=== PATIENT | female | born 1990 | race Caucasian/White ===

== ENCOUNTER 2016-12-31 18:05 | Emergency (ER) | payer SELFPAY ==
[~2016-12-31] VITALS: Ht 167.6 cm; Wt 52.2 kg
[~2016-12-31 18:05] MED LIST: AMOXICILLIN500 MG PO; TYLENOL325 MG PO; ZOFRAN ODT4 MG SL
[2016-12-31] MEDS ORDERED: CEPHALEXIN500 MG PO (19:14)
== END 2016-12-31 19:29 | disposition home or self-care (01) ==
LOC: ED 18:05
DX: K02.9 Dental caries, unspecified (principal); F31.9 Bipolar disorder, unspecified; F17.200 Nicotine dependence, unspecified, uncomplicated
CPT/HCPCS: 99283

== ENCOUNTER 2017-08-12 08:06 | Emergency (ER) | payer SELFPAY ==
[~2017-08-12] VITALS: Ht 167.6 cm; Wt 63.5 kg
[~2017-08-12 08:06] MED LIST changes: +CEPHALEXIN500 MG PO
== END 2017-08-12 10:40 | disposition home or self-care (01) ==
LOC: ED 08:06
DX: T76.21XA Adult sexual abuse, suspected, initial encounter (principal); F17.200 Nicotine dependence, unspecified, uncomplicated
CPT/HCPCS: 96372; 99283; J0696

== ENCOUNTER 2021-09-05 18:22 | Emergency (ER) | payer OTHER ==
[~2021-09-05] VITALS: Ht 167.6 cm; Wt 60.5 kg
--- OUTSIDE RECORDS SUMMARY | 2021-09-05 18:30 | XMS ---
PreManage Notification: JOE ROME Security Under Seal Operator Events No recent Security Events currently on file CRITERIA MET - Group Notification CARE PROVIDERS There are no care providers on record at this time. Jaspal has no Care Guidelines for this patient. Amy VISIT COUNT (12 MO.) 1 [place] [address] DANDRE Dsouza TOTAL 2 NOTE: Visits indicate total known visits. ED/C VISIT TRACKING (12 MO.) 09/05/2021 18:23 [facility] [place] TYPE: Emergency COMPLAINT: - VOMITING 09/27/2020 19:44 [facility] TYPE: Emergency COMPLAINT: - Tingling hands and mouth, nausea DIAGNOSES: - Tingling hands and mouth, nausea - Dehydration - Acidosis - Hypokalemia - Alcohol abuse, uncomplicated INPATIENT VISIT TRACKING (12 MO.) No inpatient visits to display in this time frame [id number]
[2021-09-05] MEDS ORDERED: ONDANSETRON ODT4 MG PO (21:38)
== END 2021-09-05 22:25 | disposition home or self-care (01) ==
LOC: ED 18:22
DX: O21.9 Vomiting of pregnancy, unspecified (principal); O99.330 Smoking (tobacco) complicating pregnancy, unspecified trimester; F17.200 Nicotine dependence, unspecified, uncomplicated; O99.280 Endocrine, nutritional and metabolic diseases complicating pregnancy, unspecified trimester; E87.6 Hypokalemia; Z3A.00 Weeks of gestation of pregnancy not specified
CPT/HCPCS: 36415; 80053; 81001; 83735; 84702; 84703; 85025; 86850; 86900; 86901; A9270; J2405; J7030; J7040

== ENCOUNTER 2021-09-18 14:50 | Emergency (ER) | payer OTHER ==
[~2021-09-18] VITALS: Ht 167.6 cm; Wt 62.1 kg
[~2021-09-18 14:50] MED LIST changes: +ONDANSETRON ODT4 MG PO
--- OUTSIDE RECORDS SUMMARY | 2021-09-18 14:58 | XMS ---
PreManage Notification: JOE ROME Security Drug Abuse Program Coordinator Events No recent Security Events currently on file CRITERIA MET - Group Notification - [facility] - 2 Visits in 30 Days CARE PROVIDERS There are no care providers on record at this time. Jaspal has no Care Guidelines for this patient. Amy VISIT COUNT (12 MO.) 1 [facility] 2 [facility] TOTAL 3 NOTE: Visits indicate total known visits. ED/C VISIT TRACKING (12 MO.) 09[facility]18[facility]2021 14:[facility] COMPLAINT: - N/V, PREG 8 WEEKS 09/05/2021 18:[address] [facility] [address] [facility] [place] TYPE: Emergency COMPLAINT: - VOMITING DIAGNOSES: - Nausea with vomiting, unspecified - Smoking (tobacco) complicating , unspecified trimester - Weeks of gestation of not specified - Endocrine, nutritional and metabolic diseases complicating , unspecified trimester - Vomiting of , unspecified - Nicotine dependence, unspecified, uncomplicated - Hypokalemia 09/27/2020 19:44 [facility] TYPE: Emergency COMPLAINT: - Tingling hands and mouth, nausea DIAGNOSES: - Tingling hands and mouth, nausea - Dehydration - Acidosis - Hypokalemia - Alcohol abuse, uncomplicated INPATIENT VISIT TRACKING (12 MO.) No inpatient visits to display in this time frame [id number]
[2021-09-18] MEDS ORDERED: PROMETHAZINE HC25 M1 PO (15:20)
[2021-09-18] MEDS ORDERED: REGLAN10 MG PO (19:08)
== END 2021-09-18 19:26 | disposition home or self-care (01) ==
LOC: ED 14:50
DX: O21.0 Mild hyperemesis gravidarum (principal); O99.331 Smoking (tobacco) complicating pregnancy, first trimester; F17.200 Nicotine dependence, unspecified, uncomplicated; Z3A.08 8 weeks gestation of pregnancy
CPT/HCPCS: 36415; 80053; 81001; 83690; 83735; 85025; J2550; J2765; J7030

== ENCOUNTER 2021-10-05 16:10 | Emergency (ER) | payer OTHER ==
[~2021-10-05] VITALS: Ht 167.6 cm; Wt 59.1 kg
[~2021-10-05 16:10] MED LIST changes: +PROMETHAZINE HC25 M1 PO; +REGLAN10 MG PO
--- OUTSIDE RECORDS SUMMARY | 2021-10-05 16:18 | XMS ---
PreManage Notification: JOE ROME Security Head Of Mobile Events No recent Security Events currently on file CRITERIA MET - Group Notification - [facility] - 2 Visits in 30 Days CARE PROVIDERS There are no care providers on record at this time. Jaspal has no Care Guidelines for this patient. Amy VISIT COUNT (12 MO.) 4 [facility] TOTAL 4 NOTE: Visits indicate total known visits. ED/C VISIT TRACKING (12 MO.) [facility]21 [facility] COMPLAINT: - VOMITING BLOOD, FEET NUMBNESS, FINGERS TINGLING 09/25/2021 15:49 [facility] [place] TYPE: Emergency COMPLAINT: - VOMITING 09/18/2021 14:51 [facility] [place] TYPE: Emergency COMPLAINT: - N/V, PREG 8 WEEKS DIAGNOSES: - 8 weeks gestation of - Nausea with vomiting, unspecified - Nicotine dependence, unspecified, uncomplicated - Mild hyperemesis gravidarum - Smoking (tobacco) complicating , first trimester 09/05/2021 18:23 [facility] [place] TYPE: Emergency COMPLAINT: - VOMITING DIAGNOSES: - Vomiting of , unspecified - Weeks of gestation of not specified - Nausea with vomiting, unspecified - Nicotine dependence, unspecified, uncomplicated - Endocrine, nutritional and metabolic diseases complicating , unspecified trimester - Smoking (tobacco) complicating , unspecified trimester - Hypokalemia INPATIENT VISIT TRACKING (12 MO.) No inpatient visits to display in this time frame [id number]
[2021-10-05] MEDS ORDERED: REGLAN10 MG PO (18:49)
[2021-10-05] MEDS ORDERED: ONDANSETRON ODT8 MG PO (18:49)
== END 2021-10-05 19:25 | disposition home or self-care (01) ==
LOC: ED 16:10
DX: O21.9 Vomiting of pregnancy, unspecified (principal); O99.331 Smoking (tobacco) complicating pregnancy, first trimester; F17.200 Nicotine dependence, unspecified, uncomplicated; Z3A.12 12 weeks gestation of pregnancy
CPT/HCPCS: 36415; 80048; 81001; 83735; 85025; 86900; 86901; 96361; 96374; 96375; 99284-25; J2405; J2550; J7030

== ENCOUNTER 2022-02-28 05:14 | Emergency (ER) | payer OTHER ==
[~2022-02-28] VITALS: Ht 167.6 cm; Wt 69.0 kg
[~2022-02-28 05:14] MED LIST changes: +ONDANSETRON ODT8 MG PO
--- OUTSIDE RECORDS SUMMARY | 2022-02-28 05:20 | XMS ---
PreManage Notification: JOE ROME Security Golf Coach Events 1 event(s) in the past 18 months Most recent security events: Elopement at [facility] 09/25/2021 15:49 - Patient eloped before treatment completed. - Patient with suicidal and/or homicidal ideations eloped. - Patient eloped with IV in place. Details: PATIENT LWBS CRITERIA MET - [facility] - 2 Visits in 30 Days - Group Notification - 6 ED Visits in 6 Months CARE PROVIDERS There are no care providers on record at this time. Jaspal has no Care Guidelines for this patient. E.D. VISIT COUNT (12 MO.) 6 [facility]. TOTAL 6 NOTE: Visits indicate total known visits. ED/UCC VISIT TRACKING (12 MO.) 02/28/2022 05:[address] [facility] [place] [facility]: [facility] COMPLAINT: - VOMITING, CHEST PAIN 02/26/2022 15:12 [facility] [place] TYPE: Emergency COMPLAINT: - VOMITING 10/05/2021 16:11 [facility] [place] TYPE: Emergency COMPLAINT: - VOMITING BLOOD, FEET NUMBNESS, FINGERS TINGLING DIAGNOSES: - Vomiting of , unspecified - Smoking (tobacco) complicating , first trimester - Other specified diseases and conditions complicating - 12 weeks gestation of - Nicotine dependence, unspecified, uncomplicated 09/25/2021 15:49 [facility] [place] TYPE: Emergency COMPLAINT: - VOMITING 09/18/2021 14:51 [facility] [place] TYPE: Emergency COMPLAINT: - N/V, PREG 8 WEEKS DIAGNOSES: - Mild hyperemesis gravidarum - Smoking (tobacco) complicating , first trimester - 8 weeks gestation of - Nausea with vomiting, unspecified - Nicotine dependence, unspecified, uncomplicated 09/05/2021 18:23 [facility] [place] TYPE: Emergency COMPLAINT: - VOMITING DIAGNOSES: - Endocrine, nutritional and metabolic diseases complicating , unspecified trimester - Smoking (tobacco) complicating , unspecified trimester - Hypokalemia - Vomiting of , unspecified - Weeks of gestation of not specified - Nausea with vomiting, unspecified - Nicotine dependence, unspecified, uncomplicated INPATIENT VISIT TRACKING (12 MO.) No inpatient visits to display in this time frame [id number]
[2022-02-28] MEDS ORDERED: CARAFATE1 GM PO (06:39)
[2022-02-28] MEDS ORDERED: PROMETHEGAN25 MG PR (06:39)
== END 2022-02-28 07:24 | disposition home or self-care (01) ==
LOC: ED 05:14
DX: O21.0 Mild hyperemesis gravidarum (principal); O21.2 Late vomiting of pregnancy; O99.333 Smoking (tobacco) complicating pregnancy, third trimester; F17.200 Nicotine dependence, unspecified, uncomplicated; Z3A.32 32 weeks gestation of pregnancy
CPT/HCPCS: 36415; 80053; 85025; 96361; 96374; 99284-25; A9270; J2550; J7121

== ENCOUNTER 2022-05-05 22:55 | Inpatient (IN) | payer OTHER ==
[~2022-05-05] VITALS: Ht 167.6 cm; Wt 81.2 kg
--- NOTE | ~2022-05-05 | OR ---
[facility] [address] [place], [place] [address] Draft DATE OF OPERATION: 05/06/2022 SURGEON: Charbel Wilcox DO PROCEDURE: PREOPERATIVE DIAGNOSIS: Retained products of conception. POSTOPERATIVE DIAGNOSIS: Retained membranes. WIRELESS NETWORK ENGINEER: Milad Rubin M.D. ANESTHESIA: General. BLOOD LOSS: 300 mL. COMPLICATIONS: None. FINDINGS: Mildly enlarged uterus with poor tone, membranes protruding from cervical os, cervix noted to be dilated to 4 cm. INDICATIONS: The patient is a 31-year-old G3, P2-0-0-2 day #1 following precipitous vaginal delivery. This afternoon, she was sitting on the toilet when she noticed membranes were protruding from her vagina. She was assessed at bedside. Manual extraction of the membranes was attempted but could not be completed due to the patient's discomfort with exam. Risks, benefits, and alternatives were discussed with the patient at length with regard to dilation, curettage, possible banjo curettage versus repeated attempts at add manual extraction at bedside. The patient strongly desired to be under anesthesia for further procedure. All questions were answered to the best of my ability to her apparent satisfaction. Consents were signed and she elected to proceed. PATIENT NAME: JOE ROME OPERATIVE REPORT DATE OF : [birth year] REPORT #: [id number] PHYSICIAN: CHARBEL WILCOX DO PCP: MILAD RUBIN MD REPORT IS CONFIDENTIAL AND NOT TO BE RELEASED WITHOUT AUTHORIZATION [facility] [address] [facility] [place], [place] [address] Draft DESCRIPTION OF PROCEDURE: The patient was taken back to the operating room where she was given 2 g Ancef and positioned in dorsal lithotomy. She was placed under general anesthesia and prepped and draped in a normal sterile fashion. Bladder was drained with a straight catheter. Weighted speculum was placed in the vagina. Anterior lip of the cervix was grasped with a ring forcep. Trailing membranes protruding through the cervix were grasped with a ring forcep and gently extracted. Manual exploration of uterine cavity reveal atonic cavity with residual membranes. Banjo curettage of the endometrial cavity was performed with moderate return of retained membranes and placental material. Following banjo curettage, there was initially a slight increase in bleeding. 1 g TXA and 30 additional units of Pitocin were administered IV. Additional pass was performed with a banjo curette after which point, the bleeding slowed dramatically and uterus was noted to be firm. All instrumentation was removed. Sponge and instrument counts were correct and she was taken to recovery in stable and satisfactory condition. Rectal Cytotec 1000 mcg was placed at the end of the case. DO ISAIAS Mckeon/DARLENEL /[id number] Copies: ~ PATIENT NAME: JOE ROME OPERATIVE REPORT DATE OF : [birth year] REPORT #: [id number] PHYSICIAN: CHARBEL WILCOX DO PCP: MILAD RUBIN MD REPORT IS CONFIDENTIAL AND NOT TO BE RELEASED WITHOUT AUTHORIZATION
[~2022-05-05 22:55] MED LIST changes: +CARAFATE1 GM PO; +PROMETHEGAN25 MG PR
--- NOTE | 2022-05-06 00:07 | NUR ---
COVID SWAB DONE TO BOTH NARES AND SENT TO IN HOUSE LAB.
--- NOTE | 2022-05-06 12:32 | PR ---
[facility] [address] [place], [place] [address] Signed PP Progress Notes Datetime Report Generated by CPN: 05/06/2022 12:32 SUBJECTIVE: [id number] Pain: Within Normal Limits Nausea/Vomiting: Denies Flatus: Yes Bowel Movement: No Vital Signs: [id number] Vital Signs: Reviewed; Within Normal Limits Cardiovascular: Normal Respiratory: Normal Abdomen/Uterus: Normal Lochia: Normal Extremities: Normal Progress: Normal Exam Comments: NAD, sitting up in bed holding baby FFBU IMPRESSION/PLAN/PROCEDURES: [id number] Impression: Normal Progression Plan: Continue Present Management Procedures: None Progress Notes: Pt is a 31 yo PPD#1 s/p precipitous -hgb 12.3 on admission, repeat hemogram scheduled for tomorrow morning - well, pain well controlled with orals, lochia light -requesting nicotine patch, currently trying to quit, smoking 5 cigarettes/day would like 7mg patch Anticipate DC to home tomorrow, reports she hemorrhages with any control and will use natural family planning methods. Signing Physician: Charbel Wilcox DO Copies: ~ *Electronically Signed* 05/06/22 123 CHARBEL WILCOX DO PATIENT NAME: JOE ROME PROGRESS NOTE DATE OF : [birth year] PHYSICIAN: CHARBEL WILCOX #: [id number] REPORT IS CONFIDENTIAL AND NOT TO BE RELEASED WITHOUT AUTHORIZATION
--- NOTE | 2022-05-06 18:29 | PR ---
[facility] [address] [place], [place] [address] Signed PP Progress Notes Datetime Report Generated by CPN: 05/06/2022 18:29 SUBJECTIVE: [id number] Pain: Within Normal Limits Nausea/Vomiting: Denies Flatus: Yes Bowel Movement: No Vital Signs: [id number] Vital Signs: Reviewed; Within Normal Limits Cardiovascular: Normal Respiratory: Normal Abdomen/Uterus: Normal Lochia: Normal Extremities: Normal Progress: Normal Exam Comments: Moderate amount of placental membranes protruding from vagina, manual extraction attempted at bedside but unable to complete due to pt discomfort. IMPRESSION/PLAN/PROCEDURES: [id number] Impression: Normal Progression Other Impression: Retained products of conception Plan: Continue Present Management Procedures: Curettage Progress Notes: Called by RN to evaluate pt - sitting on toilet with placental membranes protruding. Moved to bed, attempted manual extraction but could not be completed due to patient discomfort. Risks, benefits, alternatives to D_C/ extraction of retained products discussed with pt. Reviewed risks of insufficient currettage requiring additional procedure, risk of uterine scarring impairing future fertility, risk of perforation and hemorrhage discussed. Questions of patient and FOB answered to the best of my ability to their apparent satisfaction and they elected to proceed. Plan: 2g Ancef, D_C in main OR. Dr. Rubin to assist. Signing Physician: Charbel Wilcox DO Copies: ~ *Electronically Signed* 05/06/22 1829 CHARBEL WILCOX DO PATIENT NAME: JOE ROME PROGRESS NOTE DATE OF : [birth year] PHYSICIAN: CHARBEL WILCOX DO RPT #: [id number] REPORT IS CONFIDENTIAL AND NOT TO BE RELEASED WITHOUT AUTHORIZATION
--- NOTE | 2022-05-06 20:22 | NUR ---
05/06/222021 July Francois 89 PT ARRIVED IN PACU SLEEPY WITH NO C/O'S. 1944 C/O FEELING COLD. WARM BLANKETS X2 PLACED. 1999 TO ROOM 101. REPORT GIVEN TO [facility] RN. NO C/O'S. AND BABY AT BEDSIDE.
--- NOTE | 2022-05-07 07:05 | PR ---
[facility] [address] [place], [place] [address] Signed PP Progress Notes Datetime Report Generated by AFTAB: 05/07/2022 07:05 SUBJECTIVE: [id number] Pain: Within Normal Limits Nausea/Vomiting: Denies Flatus: Yes Bowel Movement: No Vital Signs: [id number] Vital Signs: Reviewed; Within Normal Limits Cardiovascular: Normal Respiratory: Normal Abdomen/Uterus: Normal Lochia: Normal Extremities: Normal Progress: Normal Exam Comments: NAD, standing at bedside RRR No dyspnea/ retractions Abd: SNTND, FFBU Ext: no edema IMPRESSION/PLAN/PROCEDURES: [id number] Impression: Normal Progression Other Impression: Retained products of conception Plan: Continue Present Management; Discharge Procedures: None Progress Notes: Pt is a 31 yo PPD#2 POD#1 s/p currettage for retained membranes -hgb 10.4 from 12.3, receive 1g TXA, 30 units pitocin, and 1000mcg cytotec [place] in OR for D_C for retained products -requesting DC this am -denies postop nausea, lochia scant, ambulating without dizziness/ lightheadedness, tolerating regular diet, voiding - well Plan: DC to home vs boarder status, outpatient follow-up in 2 weeks, planning condoms/ NFP/ partner vasectomy for contraception Signing Physician: Charbel Wilcox DO *Electronically Signed* 05/07/22 0705 CHARBEL WILCOX DO PATIENT NAME: JOE ROME PROGRESS NOTE DATE OF : [birth year] PHYSICIAN: CHARBEL WILCOX DO RPT #: [id number] REPORT IS CONFIDENTIAL AND NOT TO BE RELEASED WITHOUT AUTHORIZATION
== END 2022-05-07 15:45 | disposition home or self-care (01) | DRG 797 ==
LOC: FBCO 22:55 → FBC 22:56
PROVIDERS: ADMIT Obstetrics & Gynecology; ATTEND Obstetrics & Gynecology
PROC: 10E0XZZ Delivery of Products of Conception, External Approach (ICD-10-PCS; principal; 2022-05-05)
PROC: 0HQ9XZZ Repair Perineum Skin, External Approach (ICD-10-PCS; 2022-05-05)
PROC: 10D17ZZ Extraction of Products of Conception, Retained, Via Natural or Artificial Opening (ICD-10-PCS; 2022-05-06)
DX: O62.3 Precipitate labor (principal); O72.2 Delayed and secondary postpartum hemorrhage; Z37.0 Single live birth; O99.324 Drug use complicating childbirth; F12.90 Cannabis use, unspecified, uncomplicated; Z67.40 Type O blood, Rh positive; Z20.822 Contact with and (suspected) exposure to COVID-19; O70.0 First degree perineal laceration during delivery; O48.0 Post-term pregnancy; Z3A.41 41 weeks gestation of pregnancy; O99.334 Smoking (tobacco) complicating childbirth; F17.210 Nicotine dependence, cigarettes, uncomplicated
CPT/HCPCS: 00940; 36415; 85025; 85027; 86850; 86900; 86901; 87502; A9270; C9803; J0131; J0330; J0690; J1100; J2250; J2405; J2590; J2704; J3010; U0003

== ENCOUNTER 2023-10-04 13:36 | Emergency (ER) | payer OTHER ==
[~2023-10-04] VITALS: Ht 182.9 cm; Wt 65.2 kg
--- OUTSIDE RECORDS SUMMARY | 2023-10-04 13:40 | XMS ---
PreManage Notification: JOE ROME Security Sterile Technician Events No recent Security Events currently on file CRITERIA MET - Group Notification CARE PROVIDERS -, [facility] Dentist: Health Service Coordinator [facility] [place] PHONE: [phone] -Kathryn- Dentist: Health Service Coordinator [facility] PHONE: [phone] [facility] Clinic[facility]Center: [facility] PHONE: [phone] Jaspal has no Care Guidelines for this patient. E.D. VISIT COUNT (12 MO.) 2 DANDRE Dsouza TOTAL 2 NOTE: Visits indicate total known visits. ED/UCC VISIT TRACKING (12 MO.) 10/04/2023 13:37 [facility] [place] TYPE: Emergency COMPLAINT: - HEAD INJURY 06/18/2023 16:57 [facility] [place] TYPE: Emergency COMPLAINT: - POSS DEHYDRATION DIAGNOSES: - Nicotine dependence, unspecified, uncomplicated - Viral intestinal infection, unspecified - Vomiting, unspecified INPATIENT VISIT TRACKING (12 MO.) No inpatient visits to display in this time frame [email or web address]
[2023-10-04] MEDS ORDERED: JENCYCLA0.35 MG PO (13:52)
[2023-10-04] MEDS ORDERED: KEPPRA500 MG PO (17:04)
[2023-10-04 17:15] VITALS: BP 109/81
[2023-10-04] MEDS ORDERED: levETIRAcetam 500 MG TAB PO ONE (17:15)
[2023-10-04] MEDS ORDERED: levETIRAcetam 500 MG TAB PO SCH (21:00)
== END 2023-10-04 17:15 | disposition home or self-care (01) ==
LOC: ED 13:36
DX: S06.5X1A Traumatic subdural hemorrhage with loss of consciousness of 30 minutes or less, initial encounter (principal); W19.XXXA Unspecified fall, initial encounter; F17.200 Nicotine dependence, unspecified, uncomplicated; Z79.899 Other long term (current) drug therapy
CPT/HCPCS: 70450; 99284-25

== ENCOUNTER 2024-12-04 10:33 | Emergency (ER) | payer OTHER ==
[~2024-12-04] VITALS: Ht 182.9 cm; Wt 65.5 kg
[~2024-12-04 10:33] MED LIST changes: +JENCYCLA0.35 MG PO; +KEPPRA500 MG PO
--- OUTSIDE RECORDS SUMMARY | 2024-12-04 10:39 | XMS ---
PreManage Notification: JOE ROME Security Front End Web Developer Events No recent Security Events currently on file CRITERIA MET - Group Notification CARE PROVIDERS -, [facility] Dentist: Package Checker [facility] PHONE: [phone] -Kathryn- Dentist: Package Checker [facility] PHONE: [phone] [facility] Clinic/Center: Primary [facility] PHONE: [phone] Jaspal has no Care Guidelines for this patient. E.D. VISIT COUNT (12 MO.) 1 DANDRE Dsouza TOTAL 1 NOTE: Visits indicate total known visits. ED/UCC VISIT TRACKING (12 MO.) 12/04/2024 10:33 [facility] [place] TYPE: Emergency COMPLAINT: - RT HAND INJURY INPATIENT VISIT TRACKING (12 MO.) No inpatient visits to display in this time frame [email or web address]
[2024-12-04] MEDS ORDERED: HYDROCODON-ACE1 EA11 PO (11:42)
[2024-12-04] MEDS ORDERED: IBUPROFEN 600 MG TAB PO ONE (12:00)
[2024-12-04] MEDS ORDERED: HYDROCODONE/ACETA 5/325 TAB PO ONE (12:00)
[2024-12-04 12:52] VITALS: BP 96/69
== END 2024-12-04 12:38 | disposition home or self-care (01) ==
LOC: ED 10:33
DX: S62.316A Displaced fracture of base of fifth metacarpal bone, right hand, initial encounter for closed fracture (principal); X50.1XXA Overexertion from prolonged static or awkward postures, initial encounter; F17.200 Nicotine dependence, unspecified, uncomplicated; Z79.899 Other long term (current) drug therapy
CPT/HCPCS: 29125; 73130; 99283; A9270